=== PATIENT | female | born 1945 | race African-American/Black ===

== ENCOUNTER → 2017-10-10 | Outpatient (CLI) | payer MEDICARE | LOC: M.ULTRA 09-30 12:22 → M.RAD 07:16 → M.ULTRA 07:30 | DX: Z12.31 Encounter for screening mammogram for malignant neoplasm of breast (principal); I70.0 Atherosclerosis of aorta; N80.0 Endometriosis of uterus; R14.0 Abdominal distension (gaseous); I10 Essential (primary) hypertension; E03.9 Hypothyroidism, unspecified; E66.01 Morbid (severe) obesity due to excess calories; Z79.899 Other long term (current) drug therapy ==

== ENCOUNTER → 2018-04-18 | Outpatient (CLI) | payer MEDICARE | LOC: M.CT 09:00 | DX: I10 Essential (primary) hypertension (principal); E03.9 Hypothyroidism, unspecified; J90 Pleural effusion, not elsewhere classified ==

== ENCOUNTER → 2019-01-26 | Outpatient (CLI) | payer MEDICARE | LOC: M.MRI 16:07 | DX: M51.16 Intervertebral disc disorders with radiculopathy, lumbar region (principal); M25.78 Osteophyte, vertebrae; M51.84 Other intervertebral disc disorders, thoracic region; M48.061 Spinal stenosis, lumbar region without neurogenic claudication; M43.16 Spondylolisthesis, lumbar region; M47.26 Other spondylosis with radiculopathy, lumbar region; E03.9 Hypothyroidism, unspecified; G47.33 Obstructive sleep apnea (adult) (pediatric); I10 Essential (primary) hypertension; I25.118 Atherosclerotic heart disease of native coronary artery with other forms of angina pectoris ==

== ENCOUNTER → 2019-02-23 | Outpatient (CLI) | payer MEDICARE | LOC: M.ULTRA 10:58 | DX: D25.1 Intramural leiomyoma of uterus (principal); R93.89 Abnormal findings on diagnostic imaging of other specified body structures; N93.9 Abnormal uterine and vaginal bleeding, unspecified; M54.5 Low back pain ==

== ENCOUNTER → 2019-03-18 | Outpatient (CLI) | payer MEDICARE ==
--- NOTE | 2019-03-18 13:47 | EKG ---
[place] [address] ELECTROCARDIOGRAM REPORT Name: WEN REINOSO Room: [facility]#: [id number] Admission: 03/18/19 Attend Phys: Jose Miranda MD Discharge: Date of : 47 Report #: [id number] THIS REPORT FOR: //name// [facility] Test Date: 2019-03-18 Test Time: 13:02:37 Pat Name: WEN REINOSO Department: Room: Gender: F Food Science Technician: : 1945 Requested By: Jose Miranda Order Number: [id number] Reading MD: Bart Lisa Measurements Intervals [place] Rate: 57 P: 34 NM: 168 QRS: -24 QRSD: 82 T: 19 QT: 427 QTc: 416 Interpretive Statements Sinus rhythm Inferior infarct, old Anterior infarct, old No previous ECG available for comparison Electronically Signed On 03-18-2019 13:47:24 [employer]UFACTURING CONTR[employer]ER by Bart Lisa [email or web address] <ELECTRONICALLY SIGNED> By: Bart Lisa MD, [facility] 03/18/19 1347 1302 1302 Bart Lisa MD, FACC /EPI
== END ==
LOC: M.CRD 12:42
DX: Z01.818 Encounter for other preprocedural examination (principal); I10 Essential (primary) hypertension; N85.02 Endometrial intraepithelial neoplasia [EIN]

== ENCOUNTER → 2019-03-19 | Outpatient (CLI) | payer MEDICARE ==
[2019-03-19 12:11] LABS: ALBUMIN 3.4 g/dL (3.4-5.0); CALCIUM 8.9 mg/dL (8.5-10.1); CREATININE 0.8 mg/dL (0.6-1.3); POTASSIUM 4.4 mmol/L (3.5-5.1); TOTAL BILIRUBIN 0.9 mg/dL (<0.1-1.0)
== END ==
LOC: M.LAB 10:45
PROVIDERS: Obstetrics & Gynecology
DX: Z01.818 Encounter for other preprocedural examination (principal); N85.02 Endometrial intraepithelial neoplasia [EIN]; I10 Essential (primary) hypertension; R73.03 Prediabetes

== ENCOUNTER → 2019-03-20 | Outpatient (CLI) | payer MEDICARE | LOC: M.ULTRA 08:54 | DX: N85.02 Endometrial intraepithelial neoplasia [EIN] (principal); N95.0 Postmenopausal bleeding; D25.9 Leiomyoma of uterus, unspecified ==

== ENCOUNTER → 2019-04-16 | Outpatient (CLI) | payer MEDICARE | LOC: M.RAD 15:15 | DX: Z12.31 Encounter for screening mammogram for malignant neoplasm of breast (principal) ==

== ENCOUNTER → 2020-05-03 | Outpatient (CLI) | payer OTHER | LOC: M.RAD 13:29 | PROVIDERS: ATTEND Internal Medicine | DX: Z12.31 Encounter for screening mammogram for malignant neoplasm of breast (principal) ==